=== PATIENT | female | born 1965 | race Two or more races ===

== ENCOUNTER 2021-10-05 11:03 | Emergency (ER) | payer OTHER ==
[~2021-10-05] VITALS: Ht 157.5 cm; Wt 60.3 kg
[~2021-10-05 11:03] MED LIST: INTESTINEX680 MG PO; LEVAQUIN500 MG PO; NASONEX17 GM NS; SYNTHROID75 MCG; TUSSI-PRES LIQ118 ML PO
[2021-10-05] MEDS ORDERED: ATORVASTATIN CA10 MG PO (11:16)
== END 2021-10-05 15:23 ==
LOC: ER 11:03
DX: R05.8 Other specified cough (principal)

== ENCOUNTER 2024-06-07 21:47 | Emergency (ER) | payer OTHER ==
[~2024-06-07] VITALS: Ht 157.5 cm; Wt 68.0 kg
[~2024-06-07 21:47] MED LIST changes: +ATORVASTATIN CA10 MG PO
[2024-06-07 23:29] LABS: HEMATOCRIT 40.3 % (36.0-45.00); HEMOGLOBIN 13.6 g/dL (12.0-15.00); MEAN CELL VOLUME 90.6 fL (80.00-100.00); MEAN CORPUSCULAR HEMOGLOBIN 30.6 pg (27.00-32.0); MEAN CORPUSCULAR HGB CONC 33.8 g/dl (32.0-36.0); PLATELET COUNT 244 K/uL (150-450); RED BLOOD COUNT 4.45 M/uL (4.00-6.00); RED CELL DISTRIBUTION WIDTH 13.7 % (11.5-14.5)
[2024-06-07 23:47] LABS: URINE APPEARANCE Clear; URINE BILIRRUBIN Negative (NEGATIVE); URINE BLOOD Large; URINE COLOR Yellow; URINE GLUCOSE Negative (NEGATIVE); URINE KETONE 15 (NEGATIVE); URINE LEUKOCYTE Negative; URINE NITRATE Negative; URINE PROTEIN Negative (NEGATIVE); URINE UROBILINOGEN 0.2 E.U./dl
[2024-06-07 23:50] LABS: URINE BACTERIA 36.5 uL (0.0-1933); URINE EPITHELIAL CELLS 5.2 uL (0.0-38.8); URINE RBC 235.6 uL (0.0-20.8); URINE WBC 15.9 uL (0.0-23.2)
[2024-06-07 23:54] LABS: URINE CAST 0.91 uL (0.0-1.40)
[2024-06-08] MEDS ORDERED: KETO10TA2 PO (02:15)
[2024-06-08] MEDS ORDERED: CIPRO500 MG PO (02:15)
== END 2024-06-08 02:23 ==
LOC: ER 21:48
PROVIDERS: Preventive Medicine Public Health & General Preventive Medicine
DX: N39.0 Urinary tract infection, site not specified (principal); E03.9 Hypothyroidism, unspecified; Z88.0 Allergy status to penicillin; Z88.8 Allergy status to other drugs, medicaments and biological substances